=== PATIENT | female | born 1950 | race Caucasian/White ===

== ENCOUNTER → 2018-12-12 | Outpatient (CLI) | payer MEDICARE, OTHER ==
[~2018-12-12] MED LIST: ATORVASTATIN CA20 MG PO
--- NOTE | 2018-12-12 09:50 | Diagnostic Imaging Report ---
Exam: Right hip radiographs-3 views Clinical History: Right hip pain Comparison: None. Findings: No evidence of acute fracture, malalignment, or soft tissue abnormality. There are mild degenerative changes in the right hip. Impression: No acute radiographic abnormality. Mild right hip osteoarthritis. Signed by: Dr. Giovanni Fowler MD on 12/12/2018 9:47 AM
== END ==
LOC: RAD 07:53
PROVIDERS: ATTEND Internal Medicine
DX: M25.551 Pain in right hip (principal)